=== PATIENT | male | born 1995 | race Caucasian/White ===

== ENCOUNTER 2023-05-31 14:31 | Emergency (ER) | payer OTHER, SELFPAY ==
--- OUTSIDE RECORDS SUMMARY | 2023-05-31 14:55 | XMS REPORT | Continuity of Care Document ---
:1995 Author Organization [facility] t Address [address] [place] [address] Care Team Providers Name Role Phone Pcp, Patient Does Not Have A Primary Care Physician [phone] Vandana Vargas MD Attending Clinician MANUELA CURIEL Attending Clinician Unavailable Manuela Garibay Attending Clinician Service/[place], Surgery C Attending Clinician Unavailable EDNA CHOWDHURY Attending Clinician Unavailable Doctor Unassigned, [place] Attending Clinician Unavailable Ivis Tucker RN Attending Clinician Unavailable VANDANA VARGAS Attending Clinician Unavailable Zeny ECHOLS, Lidia Milligan Attending Clinician Ricardo Dumont MD Attending Clinician VANDANA VARGAS Admitting Clinician Unavailable Vandana Vargas MD Admitting Clinician Payers Payer Name Policy Type Policy Number Effective Date Expiration Date S ource Problems Condition Condition Condition Status Onset Resolution Last Treating Co mments Source Name Details Category Date Date Treatment Clinician Date RLQ RLQ Disease Active 2021-08 Univers abdominal abdominal 2-17 ity of pain pain 00:00: [address] Allergies, Adverse Reactions, Alerts Allergy Allergy Status Severity Reaction(s) Onset Inactive Treating Comm ents Source Name Type Date Date Clinician NO KNOWN Drug Active Univers ALLERGIE Class ity of [facility] Social History Social Habit Start Date Stop Date Quantity Comments Source History SDOH Social Unive rsity of [facility] Branch History SDOH Social Unive rsity of Connections [facility] [place] [facility] History SDOH Social Unive rsity of Connections [place] [facility] Members[facility] History SDOH Social Unive rsity of Connections [place] [facility] Meetings [facility] History of tobacco Passive smoker Un iversity of use [place] [facility] Exposure to 2022-08-05 2022-08-15 Not sure University of SARS-CoV-2 (event) 00:00:00 23:53:00 [place] [facility] History SDOH 2022-07-28 2022-07-28 2 University o f Alcohol Frequency 00:00:00 00:00:00 [place] [facility] History SDOH 2022-07-28 2022-07-28 2 University o f Alcohol Std Drinks 00:00:00 00:00:00 [place] [facility] History SDOH 2022-07-28 2022-07-28 2 University o f Alcohol Binge 00:00:00 00:00:00 [place] [facility] History SDOH Social 2022-07-28 2022-07-28 5 Unive rsity of Connections Phone 00:00:00 00:00:00 [place] [facility] History SDOH Social 2022-07-28 2022-07-28 7 Unive rsity of Connections Living 00:00:00 00:00:00 [place] [facility] History SDOH 2022-07-28 2022-07-28 0 University o f Physical Activity 00:00:00 00:00:00 [place] [facility] DPW Branch History SDOH 2022-07-28 2022-07-28 0 University o f Physical Activity 00:00:00 00:00:00 [place] [facility] MPS Branch History SDOH 2022-07-28 2022-07-28 5 University o f Financial 00:00:00 00:00:00 [place] [facility] History SDOH Food 2022-07-28 2022-07-28 1 Univers ity of Worry 00:00:00 00:00:00 [place] [facility] History SDOH Food 2022-07-28 2022-07-28 1 Univers ity of Scarcity 00:00:00 00:00:00 [place] [facility] History SDOH 2022-07-28 2022-07-28 2 University o f Transport Med 00:00:00 00:00:00 [place] [facility] History SDOH 2022-07-28 2022-07-28 2 University o f Transport Non-Med 00:00:00 00:00:00 [facility] edical [place] Tobacco use and 2022-07-26 2022-07-26 [facility] 00:00:00 tobacco non-user [facility] dical [place] Sex Assigned At [birth year] [facility] y of 00:00:00 00:00:00 [facility] Smoking Status Start Date Stop Date Source Never smoked tobacco [facility] Medications Ordered Filled Start Stop Current Ordering Indication Dosage Frequency Signature Comments Components Source Medication Medication Date Date Medication? Clinician (SIG) Name Name traMADoL 50 2021-08 Yes [id number] 50mg Take 1 Univ ers mg tablet 2-25 tablet by ity o f 00:00: mouth [place] 00 every 8 Medical (eight) Branch hours as needed for Pain (scale 4-6). Indication s: acute pain traMADoL 50 2021-08 Yes 4647 50mg Take 1 Univ ers mg tablet 2-25 tablet by ity o f 00:00: mouth [place] 00 every 8 Medical (eight) Branch hours as needed for Pain (scale 4-6). Indication s: acute pain traMADoL 50 2021-08 Yes 4647 50mg Take 1 Univ ers mg tablet 2-25 tablet by ity o f 00:00: mouth [place] 00 every 8 Medical (eight) Branch hours as needed for Pain (scale 4-6). Indication s: acute pain traMADoL 50 2021-08 Yes 4647 50mg Take 1 Univ ers mg tablet 2-25 tablet by ity o f 00:00: mouth [place] 00 every 8 Medical (eight) Branch hours as needed for Pain (scale 4-6). Indication s: acute pain traMADoL 50 2021-08 Yes 4647 50mg Take 1 Univ ers mg tablet 2-25 tablet by ity o f 00:00: mouth [place] 00 every 8 Medical (eight) Branch hours as needed for Pain (scale 4-6). Indication s: acute pain traMADoL 50 2021-08 Yes 4647 50mg Take 1 Univ ers mg tablet 2-25 tablet by ity o f 00:00: mouth [place] 00 every 8 Medical (eight) Branch hours as needed for Pain (scale 4-6). Indication s: acute pain traMADoL 50 2021-08 Yes 4647 50mg Take 1 Univ ers mg tablet 2-25 tablet by ity o f 00:00: mouth [place] 00 every 8 Medical (eight) Branch hours as needed for Pain (scale 4-6). Indication s: acute pain traMADoL 50 2021-08 Yes 4647 50mg Take 1 Univ ers mg tablet 2-25 tablet by ity o f 00:00: mouth [place] 00 every 8 Medical (eight) Branch hours as needed for Pain (scale 4-6). Indication s: acute pain amoxicillin 2021-08- No [id number] 1{tbl} Take 1 Univers -clavulanat 2-25 01-05 tablet by it y of e 00:00: 05:59 mouth in [place] (AUGMENTIN) 00 :00 the Medical 875-125 mg morning Branch per tablet and 1 tablet in the evening. Do all this for 10 days. amoxicillin 2021-08- No [id number] 1{tbl} Take 1 Univers -clavulanat 2-25 01-05 tablet by it y of e 00:00: 05:59 mouth in [place] (AUGMENTIN) 00 :00 the Medical 875-125 mg morning Branch per tablet and 1 tablet in the evening. Do all this for 10 days. traMADoL 50 2021-08- No [id number] 50mg Take 1 Uni vers mg tablet 2-25 -02 tablet by ity of 00:00: 05:59 mouth [place] 00 :00 every 8 Medical (eight) Branch hours as needed for Pain (scale 4-6) for up to 7 days. Indication s: acute pain acetaminoph 2021-08- No [id number] 650mg Take 2 Univers en 325 mg 2-25 12-31 tablets by ity of tablet 00:00: 05:59 mouth [place] 00 :00 every 6 Medical (six) Branch hours for 5 days. ibuprofen 2021-08- No [id number] 600mg Take 1 Univers 600 mg 2-25 12-31 tablet by ity of tablet 00:00: 05:59 mouth [place] 00 :00 every 6 Medical (six) Branch hours for 5 days. simethicone 2021-08- No [id number] 80mg Take 1 Univers 80 mg 2-25 12-31 tablet by ity of chewable 00:00: 05:59 mouth [place] tablet 00 :00 after Medical meals and Branch at bedtime for 5 days. simethicone 2021-08- No [id number] 80mg Take 1 Univers 80 mg 2-25 12-30 tablet by ity of chewable 00:00: 05:59 mouth [place] tablet 00 :00 after Medical meals and Branch at bedtime for 4 days. ibuprofen 2021-08- No [id number] 600mg Take 1 Univers 600 mg 2-25 12-30 tablet by ity of tablet 00:00: 05:59 mouth [place] 00 :00 every 6 Medical (six) Branch hours for 4 days. acetaminoph 2021-08- No [id number] 650mg Take 2 Univers en 325 mg 2-25 12-30 tablets by ity of tablet 00:00: 05:59 mouth [place] 00 :00 every 6 Medical (six) Branch hours for 4 days. metoclopram 2021-08 No 5mg 5 mg, Slow Univers charlie HCl 10-03 12-25 IV Push, ity of (REGLAN) 18:00: 17:58 Q6H, First [place] injection 5 00 :01 dose on Medic al mg Sat Branch 08/02/22 at 1200, Until Discontinu ed, Routine potassium 2021-08 No 20meq 20 mEq, IV Univers chloride in 10-03 12-24 Piggyback, i ty of water (KCL) 12:30: 17:10 Q2H ES, 2 [place] 20 mEq/100 00 :00 doses, Medical mL RTU IVPB First dose Br anch 20 mEq on 08/02/22 at 0630, Last dose on 08/02/22 at 0830, 100 mL piperacilli 2021-08 No 3.375g 3.375 g, Univers n-tazobacta 10-02 IV ity of m (ZOSYN) 22:45: 22:44 Piggyback, [place] 3.375 g in 00 :00 Q8H ABX, Medic al NaCl 0.9% 30 doses, Branc h (NS) 50 mL First dose MINI-BAG on Thu08/01/22 at 1645, Last dose on Thu08/11/22 at 0845, Administer over 4 Hours, 50 mL
Reas on for Anti-Infec tive: Documented Infection< br>Documen estela Infection Site: Abdominal< br>Duratio n of Therapy: 14 days lidocaine 2021-08- No 15mL 15 mL, Unive rs 1% (PF) 10-02 Infiltrati ity o f (XYLOCAINE) 18:15: 17:47 on, ONCE, [place] injection 00 :00 1 dose, On Medi sumi 15 mL Fri Branch 08/01/22 at 1215, Routine ibuprofen 2021-08 Yes 600mg 600 mg, Univ ers (IBU) 10-02 Oral, Q6H, ity of tablet 600 18:00: First dose [place] mg 00 on Fri Medical 08/01/22 Branch at 1200, Until Discontinu ed, Routine iopamidol 2021-08- No [id number] 30mL 30 mL, Univers (ISOVUE 10-02 Oral, ity of 370-200 mL) 17:45: 15:15 ONCE, 1 [place] injection 00 :00 dose, On Medica l 30 mL Fri Branch 08/01/22 at 1145, Routine iopamidol 2021-08- No [id number] 50mL 50 mL, Univers (ISOVUE 10-02 Intravenou ity o f 370-500 mL) 17:45: 16:50 s, ONCE, 1 [place] injection 00 :00 dose, On Medica l 50 mL Fri Branch 08/01/22 at 1145, Routine acetaminoph 2021-08 Yes 650mg 650 mg, Un tad en 10-02 Oral, Q6H, ity of (TYLENOL) 15:00: First dose [place] tablet 650 00 on Fri Medical mg 08/01/22 Branch at 0900, Until Discontinu ed, Routine piperacilli 2021-08- No 3.375g 3.375 g, Univers n-tazobacta 10-02 IV ity of m (ZOSYN) 15:00: 15:33 Piggyback, [place] 3.375 g in 00 :00 ONCE, 1 Medica l NaCl 0.9% dose, On Branch (NS) 50 mL Fri MINI-BAG 08/01/22 at 0900, Administer over 30 Minutes, 50 mL
Reas on for Anti-Infec tive: Empiric Therapy for Suspected Infection< br>Empiric Therapy Site: Abdominal< br>Duratio n of therapy: 5 days ibuprofen 2021-08 No 600mg 600 mg, Uni vers (IBU) 10-02 Oral, ity of tablet 600 12:00: 12:45 ONCE, 1 [place] mg 00 :00 dose, On Medical Fri Branch 08/01/22 at 0600, Routine acetaminoph 2021-08 No 650mg 650 mg, U nivers en 10-02 Oral, ity of (TYLENOL) 09:00: 09:01 ONCE, 1 [place] tablet 650 00 :00 dose, On Medic al mg Fri Branch 08/01/22 at 0300, Routine clindamycin 2021-08 No 600mg 600 mg, IV Univers in 5 % 10-02 Piggyback, ity of dextrose 05:15: 14:12 Q8H ABX, 3 [place] (CLEOCIN) 00 :24 doses, Medical 600 mg/50 First dose Bran ch mL IV on [place] piggyback 07/31/22 RTU 600 mg at 2315, Last dose on Thu08/01/22 at 1515, Administer over 30 Minutes, 50 mL
Reas on for Anti-Infec tive: Empiric Therapy for Suspected Infection< br>Empiric Therapy Site: Skin / Soft tissue
Duration of therapy: 72 hours
R estricted use approved by: After Hours (for ADC, CLC, LCC ONLY) acetaminoph 2021-08 No 1000mg 1,000 mg, Univers en 09-29 Oral, Q8H, ity of (TYLENOL) 20:00: 04:05 First dose [place] tablet 00 :31 on Thu Medical 1,000 mg 07/29/22 Branch at 1400, Until Discontinu ed, Routine D5W 0.45% 2021-08 No 1000mL at 50 Univ ers NaCl 09-29 12-25 mL/hr, ity of (1/2NS) IV 15:15: 17:58 1,000 mL, [place] infusion 00 :07 IV Medical 1,000 mL Infusion, Branch CONTINUOUS , Starting on Thu07/29/22 at 0915, Until 08/03/22 at 1158, Routine bisacodyL 2021-08 No 10mg 10 mg, Unive rs (DULCOLAX) 2- 12-19 Rectal, ity o f suppository 20:45: 20:45 ONCE, 1 [place] 10 mg 00 :00 dose, On Medical [facility] Branch 07/28/22 at 1445, Routine D5W 0.45% 2021-08 Yes 1000mL at 100 Univ ers NaCl 2-19 mL/hr, ity of (1/2NS) IV 13:00: 1,000 mL, [place] infusion 00 IV Medical 1,000 mL Infusion, Branch CONTINUOUS , Starting on Thu07/28/22 at 0700, Until Discontinu ed, Routine D5W 0.45% 2021-08 No 1000mL at 100 Uni vers NaCl - 12-20 mL/hr, ity of (1/2NS) IV 13:00: 15:08 1,000 mL, [place] infusion 00 :39 IV Medical 1,000 mL Infusion, Branch CONTINUOUS , Starting on Thu07/28/22 at 0700, Until Thu07/29/22 at 0908, Routine methocarbam 2021-08 Yes 1000mg 1,000 mg, Univers oL - Intravenou ity of (ROBAXIN) 12:00: s, Q8H, [place] injection 00 First dose Medi sumi 1,[address] [facility] 07/28/22 at 0600, Until Discontinu ed, Routine methocarbam 2021-08 No 1000mg 1,000 mg, Univers oL -28 07- Intravenou ity of (ROBAXIN) 12:00: 16:43 s, Q8H, [place] injection 00 :23 First dose Medi sumi 1,[address] [facility] 07/28/22 at 0600, Until Discontinu ed, Routine simethicone 2021-08 Yes 80mg 80 mg, Univ ers (GAS RELIEF 2-19 Oral, ity of (SIMETHICON 11:30: PC+HS, [place] E)) 00 First dose Medical chewable on Thu Branch tablet 80 07/28/22 mg at 0530, Until Discontinu ed, Routine simethicone 2021-08 Yes 80mg 80 mg, Univ ers (GAS RELIEF 2-19 Oral, ity of (SIMETHICON 11:30: PC+HS, [place] E)) 00 First dose Medical chewable on Thu Branch tablet 80 07/28/22 mg at 0530, Until Discontinu ed, Routine acetaminoph 2021-08- No 1000mg 1,000 mg, Univers en ADULT 09-28 IV ity of ([facility]) 11:00: 10:59 Infusion, [place] injection 00 :00 at 400 Medical 1,000 mg mL/hr Branch Administer over 15 Minutes, Q8H ABX, 3 doses, First dose on Thu07/28/22 at 0500, Last dose on Thu07/28/22 at 2100, Routine
Indicatio n: Perioperat angelina Patient acetaminoph 2021-08- No 1000mg 1,000 mg, Univers en ADULT 09-28 IV ity of ([facility]) 11:00: 02:23 Infusion, [place] injection 00 :00 at 400 Medical 1,000 mg mL/hr Branch Administer over 15 Minutes, Q8H ABX, 3 doses, First dose on Thu07/28/22 at 0500, Last dose on Thu07/28/22 at 2100, Routine
Indicatio n: Perioperat angelina Patient ondansetron 2021-08 Yes 4mg 4 mg, Slow Univers (ZOFRAN 2-19 IV Push, ity of (PF)) 10:12: Q6HPRN, [place] injection 4 14 Nausea and Me dical mg Vomiting Branch (N/V), Starting on Thu07/28/22 at 0412
Do ses of ondansetro n 16 mg and above need to be administer ed via IV piggyback. For Dose >=24mg ECG monitoring is advisable.
ondansetron 2021-08 Yes 4mg 4 mg, Slow Univers (ZOFRAN 2-19 IV Push, ity of (PF)) 10:12: Q6HPRN, [place] injection 4 14 Nausea and Me dical mg Vomiting Branch (N/V), Starting on Thu07/28/22 at 0412
Do ses of ondansetro n 16 mg and above need to be administer ed via IV piggyback. For Dose >=24mg ECG monitoring is advisable.
benzocaine 2021-08 Yes 1{spray 1 [place], Univers (HURRICAINE 2-19 } Oral, ity of ONE) 20 % 04:02: Q4HPRN, [place] mucosal 49 Starting Medical spray 1 on [place] [facility] [place] 07/27/22 at 2202, Until Discontinu ed, Routine, Sore throat benzocaine 2021-08 Yes 1{spray 1 [place], Univers (HURRICAINE 2-19 } Oral, ity of ONE) 20 % 04:02: Q4HPRN, [place] mucosal 49 Starting Medical spray 1 on [place] Branch [place] 07/27/22 at 2202, Until Discontinu ed, Routine, Sore throat ibuprofen 2021-08 Yes 600mg 600 mg, Univ ers (IBU) 2-18 Oral, Q8H, ity of tablet 600 20:00: First dose [place] mg 00 on [place] [facility] 07/27/22 Branch at 1400, Until Discontinu ed, Routine ibuprofen 2021-08 No 600mg 600 mg, Uni vers (IBU) 2-18 12-23 Oral, Q8H, ity of tablet 600 20:00: 04:05 First dose [place] mg 00 :31 on [place] [facility] 07/27/22 Branch at 1400, Until Discontinu ed, Routine acetaminoph 2021-08 No 1000mg 1,000 mg, Univers en 2-18 12-19 Oral, Q8H, ity of (TYLENOL) 20:00: 10:48 First dose [place] tablet 00 :16 on [place] [facility] 1,000 mg 07/27/22 Branch at 1400, Until Discontinu ed, Routine pantoprazol 2021-08 Yes 40mg 40 mg, Univ ers e 2-18 Oral, ity of (PROTONIX) 18:45: DAILY, [place] EC tablet 00 First dose Medi sumi 40 mg on [place] [facility] 07/27/22 at 1245, Until Discontinu ed, Routine pantoprazol 2021-08 Yes 40mg 40 mg, Univ ers e 2-18 Oral, ity of (PROTONIX) 18:45: DAILY, [place] EC tablet 00 First dose Medi sumi 40 mg on [place] [facility] 07/27/22 at 1245, Until Discontinu ed, Routine D5W 0.45% 2021-08 No 1000mL at 75 Univ ers NaCl 2-18 12-19 mL/hr, ity of (1/2NS) IV 18:00: 12:56 1,000 mL, [place] infusion 00 :51 IV Medical 1,000 mL Infusion, Branch CONTINUOUS , Starting on 07/27/22 at 1200, Until 07/28/22 at 0656, Routine methocarbam 2021-08 No 1000mg 1,000 mg, Univers oL 09-27 Oral, QID, ity of (ROBAXIN) 18:00: 11:21 First dose [place] tablet 00 :01 on [place] [facility] 1,000 mg 07/27/22 Branch at 1200, Until Discontinu ed, Routine enoxaparin 2021-08 Yes 40mg 40 mg, Unive rs (LOVENOX) 09-27 Subcutaneo ity of injection 15:00: us, DAILY, [place] 40 mg 00 First dose Medical on [place] [facility] 07/27/22 at 0900, Until Discontinu ed, Routine enoxaparin 2021-08 Yes 40mg 40 mg, Unive rs (LOVENOX) 09-27 Subcutaneo ity of injection 15:00: us, DAILY, [place] 40 mg 00 First dose Medical on [facility] 07/27/22 at 0900, Until Discontinu ed, Routine ondansetron 2021-08 No 4mg 4 mg, Slow Univers (ZOFRAN 09-27 IV Push, ity of (PF)) 05:00: 04:27 ONCE, On [place] injection 4 00 :00 Sat Medical mg 07/26/22 Branch at 2300, For 1 dose
Do ses of ondansetro n 16 mg and above need to be administer ed via IV piggyback. For Dose >=24mg ECG monitoring is advisable.
ketorolac 2021-08 No 15mg 15 mg, Unive rs (TORADOL) 09-27 Slow IV ity of injection 04:00: 17:47 Push, Q8H, [place] 15 mg 00 :33 3 doses, Medical First dose Branch on 07/26/22 at 2200, Last dose on 07/27/22 at 1400, Routine morpHINE (2 2021-08 Yes 2mg 2 mg, Slow Univers mg/mL) 09-27 IV Push, ity of injection 2 03:00: Q4HPRN, [place] mg 00 Starting Medical on [facility] Branch 07/26/22 at 2100, Until Discontinu ed, Routine, Pain (scale 7-10) morpHINE (2 2021-08 Yes 2mg 2 mg, Slow Univers mg/mL) 09-27 IV Push, ity of injection 2 03:00: Q4HPRN, [place] mg 00 Starting Medical on [facility] Branch 07/26/22 at 2100, Until Discontinu ed, Routine, Pain (scale 7-10) morpHINE (2 2021-08- No 2mg 2 mg, Slow Univers mg/mL) 09-27 IV Push, ity of injection 2 00:00: 23:51 ONCE, 1 [place] mg 00 :00 dose, On Medical [facility] Branch 07/26/22 at 1800, Routine piperacilli 2021-08 No 3.375g 3.375 g, Univers n-tazobacta 09-26 IV ity of m (ZOSYN) 23:45: 19:04 Piggyback, [place] 3.375 g in 00 :00 Q8H ABX, 3 Med ical NaCl 0.9% doses, Branch (NS) 50 mL First dose MINI-BAG (after last modificati on) on [facility] 07/26/22 at 1745, Last dose on [place] 07/27/22 at 0945, Administer over 4 Hours, 50 mL
Reas on for Anti-Infec tive: Empiric Therapy for Suspected Infection< br>Empiric Therapy Site: Abdominal< br>Duratio n of therapy: 5 days methocarbam 2021-08 No 1000mg 1,000 mg, Univers oL 09-26 Intravenou ity of (ROBAXIN) 23:45: 17:47 s, Q8H, [place] injection 00 :33 First dose Medi sumi 1,000 mg (after Branch last modificati on) on [facility] 07/26/22 at 1745, Until Discontinu ed, Routine D5W 0.45% 2021-08 No 1000mL at 125 Uni vers NaCl 09-26 mL/hr, ity of (1/2NS) IV 21:30: 17:47 1,000 mL, [place] infusion 00 :33 IV Medical 1,000 mL Infusion, Branch CONTINUOUS , Starting on [facility] 07/26/22 at 1530, Until 07/27/22 at 1147, Routine HYDROcodone 2021-08- No 1{tbl} 1 tablet, Univers -acetaminop 09-26 Oral, ity of hen (NORCO 21:30: 21:47 ONCE, 1 [place] 5) 5-325 mg 00 :00 dose, On [facility] tablet 1 [facility] Branch tablet 07/26/22 at 1530, Routine, PACU bupivacaine 2021-08- No PRN, Unive rs -epinephrin 09-26 Starting ity of e-pf 21:06: 21:30 on [facility] (SENSORCAIN 00 :45 07/26/22 Medi sumi E at 1506, Branch W/EPINEPHRI Until Sat NE) 0.25 07/26/22 %-1:200,000 at 1530, injection Routine, Intra-op piperacilli 2021-08 No 3.375g 3.375 g, Univers n-tazobacta 09-26 IV ity of m (ZOSYN) 15:45: 21:21 Piggyback, [place] 3.375 g in 00 :11 Q8H ABX, Medic al NaCl 0.9% 21 doses, Branc h (NS) 50 mL First dose MINI-BAG on [facility] 07/26/22 at 0945, Last dose on 08/02/22 at 0145, Administer over 4 Hours, 50 mL
Reas on for Anti-Infec tive: Empiric Therapy for Suspected Infection< br>Empiric Therapy Site: Abdominal< br>Duratio n of therapy: 5 days polyethylen 2021-08 Yes 17g 17 g, Unive rs e glycol 2-17 Oral, QAM, ity o f 3350 powder 15:00: First dose [place] 17 g 00 on [facility] Medical 07/26/22 Branch at 0900, Until Discontinu ed, Routine polyethylen 2021-08- No 17g 17 g, Univ ers e glycol 2-07-31 Oral, QAM, ity of 3350 powder 15:00: 16:43 First dose [place] 17 g 00 :23 on [facility] Medical 07/26/22 Branch at 0900, Until Discontinu ed, Routine pantoprazol 2021-08 No 40mg 40 mg, Uni vers e 09-26 Oral, ity of (PROTONIX) 15:00: 17:47 DAILY, [place] EC tablet 00 :33 First dose Medi sumi 40 mg on Sat Branch 07/26/22 at 0900, Until Discontinu ed, Routine acetaminoph 2021-08 No 1000mg 1,000 mg, Univers en ADULT 09-26 IV ity of (OFIRMEV) 12:00: 11:59 Infusion, [place] injection 00 :00 at 400 Medical 1,000 mg mL/hr Branch Administer over 15 Minutes, Q8H, 3 doses, First dose on [facility] 07/26/22 at 0600, Last dose on [facility] 07/26/22 at 2200, Routine
Indicatio n: Perioperat angelina Patient ibuprofen 2021-08 No 400mg 400 mg, Uni vers (IBU) 09-26 Oral, Q8H, ity of tablet 400 12:00: 21:21 First dose [place] mg 00 :11 on [facility] Medical 07/26/22 Branch at 0600, Until Discontinu ed, Routine piperacilli 2021-08 No 3.375g 3.375 g, Univers n-tazobacta 09-26 IV ity of m (ZOSYN) 07:45: 07:42 Piggyback, [place] 3.375 g in 00 :00 ONCE, 1 Medica l NaCl 0.9% dose, On Branch (NS) 50 mL Sat MINI-BAG 07/26/22 at 0145, Administer over 30 Minutes, 50 mL
Reas on for Anti-Infec tive: Documented Infection< br>Documen estela Infection Site: Abdominal< br>Duratio n of Therapy: Other (see Comments) D5W 0.45% 2021-08 No 1000mL at 100 Uni vers NaCl 09-26 mL/hr, ity of (1/2NS) IV 07:15: 21:21 1,000 mL, [place] infusion 00 :11 IV Medical 1,000 mL Infusion, Branch CONTINUOUS , Starting on 07/26/22 at 0115, Until 07/26/22 at 1521, Routine morpHINE (2 2021-08- No 2mg 2 mg, Slow Univers mg/mL) 09-26 IV Push, ity of injection 2 07:02: 02:53 Q6HPRN, [place] mg 27 :00 Starting Medical on [facility] Branch 07/26/22 at 0102, Until [facility] 07/26/22 at 2053, Routine, Pain (scale 7-10) traMADoL 2021-08 Yes 50mg 50 mg, Univers (ULTRAM) 2-17 Oral, ity of tablet 50 07:02: Q8HPRN, [place] mg 20 Starting Medical on [facility] Branch 07/26/22 at 0102, Until Discontinu ed, Routine, Pain (scale 4-6) traMADoL 2021-08 Yes 50mg 50 mg, Univers (ULTRAM) 2- Oral, ity of tablet 50 07:02: Q8HPRN, [place] mg 20 Starting Medical on [facility] 07/26/22 at 0102, Until Discontinu ed, Routine, Pain (scale 4-6) iopamidol 2021-08- No [id number] 56mL 56 mL, Univers (ISOVUE 09-26 Intravenou ity o f 370-500 mL) 04:45: 04:45 s, ONCE, 1 [place] injection 00 :00 dose, On Medica l 56 mL Fri Branch 07/25/22 at 2245, Routine ketorolac 2021-08- No 30mg 30 mg, Unive rs (TORADOL) 09-26 Slow IV ity of injection 04:15: 03:11 Push, [place] 30 mg 00 :00 ONCE, 1 Medical dose, On Branch 07/25/22 at 2215, Routine Vital Signs Vital Name Observation Time Observation Value Comments Source Systolic blood 2022-08-16 06:45:00 116 mm[Hg] Univer sity of pressure [facility] Diastolic blood 2022-08-16 06:45:00 68 mm[Hg] Unive rsity of pressure [facility] Heart rate 2022-08-16 06:45:00 75 /min Universi ty [facility] Respiratory rate 2022-08-16 06:45:00 16 /min Univ ersity [facility] Medical Branch Oxygen saturation in 2022-08-16 06:45:00 97 /min University of Arterial blood by [facility] sumi Pulse oximetry Branch Body temperature 2022-08-16 05:55:00 36.78 Flor Univ ersity [facility] [place] [facility] Body height 2022-08-16 05:54:00 172.7 cm [facility] [place] [facility] Body weight 2022-08-16 05:54:00 81.647 kg [facility] [place] [facility] BMI 2022-08-16 05:54:00 27.37 kg/m2 [facility] [place] [facility] Systolic blood 2022-08-14 21:18:00 120 mm[Hg] Univer sity of pressure [place] [facility] Diastolic blood 2022-08-14 21:18:00 71 mm[Hg] Unive rsity of pressure [place] [facility] Heart rate 2022-08-14 21:18:00 94 /min [facility] [place] [facility] Body temperature 2022-08-14 21:18:00 36.72 Flor Univ [facility] [place] [facility] Body height 2022-08-14 21:18:00 172.7 cm [facility] [place] [facility] Body weight 2022-08-14 21:18:00 82.464 kg [facility] [place] [facility] BMI 2022-08-14 21:18:00 27.64 kg/m2 [facility] [place] [facility] Oxygen saturation in 2022-08-14 21:18:00 94 /min University of Arterial blood by [facility] Pulse oximetry Branch Systolic blood 2022-08-03 17:30:00 116 mm[Hg] Univer sity of pressure [place] [facility] Diastolic blood 2022-08-03 17:30:00 66 mm[Hg] Unive rsity of pressure [place] [facility] Heart rate 2022-08-03 17:30:00 74 /min [facility] [place] [facility] Body temperature 2022-08-03 17:30:00 37 Flor [facility] [place] [facility] Respiratory rate 2022-08-03 17:30:00 20 /min [facility] [place] [facility] Oxygen saturation in 2022-08-03 17:30:00 99 /min University of Arterial blood by [facility] sumi Pulse oximetry Branch Body height 2022-07-28 14:01:00 172.7 cm Universi [facility] Medical [place] Body weight 2022-07-28 14:01:00 88 [facility] [place] BMI 2022-07-28 14:01:00 29.51 [facility] 2022-07-26 18:15:00 125 mm[Hg] Univer sity of pressure [facility] Diastolic blood 2022-07-26 18:15:00 70 mm[Hg] Unive rsity of [facility] Heart rate 2022-07-26 18:15:00 76 /min [facility] Respiratory rate 2022-07-26 18:15:00 15 /min [facility] Oxygen saturation in 2022-07-26 18:15:00 98 /min [facility] Arterial blood by [facility] Pulse oximetry Branch Body temperature 2022-07-26 17:45:00 37.17 Flor [facility] Body height 2022-07-26 08:30:00 172.7 cm [facility] Body weight 2022-07-26 08:30:00 88 kg [facility] BMI 2022-07-26 08:30:00 29.51 kg/m2 [facility] Procedures Procedure Date / Time Performing Clinician Source Performed CONSENT/REFUSAL FOR 2022-08-16 05:29:36 Doctor Unassigned, No [facility] CONSENT/REFUSAL FOR 2022-08-14 21:08:40 [facility], [facility] Branch BASIC METABOLIC PANEL 2022-08-03 12:11:00 Carmella Sotelo [facility] (NA, K, CL, CO2, Julia, Mukesh Medical Bran GLUCOSE, BUN, CREATININE, CA) CBC WITH DIFF 2022-08-03 12:11:00 Carmella Sotelo [facility] Julia, Mukesh Medical [facility] h XR KUB 2022-08-02 12:41:00 Carmella Sotelo [facility] Julia, Mukesh Medical [facility] h BASIC METABOLIC PANEL 2022-08-02 09:09:00 Carmella S[facility]elo [facility] (NA, K, CL, CO2, Julia, Mukesh Medical Bran ch GLUCOSE, BUN, CREATININE, CA) CBC WITH DIFF 2022-08-02 09:09:00 Carmella Sotelo [facility] Julia, Mukesh Medical Branc h XR KUB 2022-08-01 20:37[facility], Mkuesh Medical Branc h WOUND/ASPIRATE OR 2022-08-01 18:02:00 Carmella Sotelo [facility] ABSCESS CULTURE Julia, Mukesh Medical Branc h WOUND CULTURE 2022-08-01 18:02:00 [facility], Mukesh Medical Branc h CT ABDOMEN PELVIS W 2022-08-01 17:00:06 Carmella Sotelo [facility] CONTRAST Julia, Mukesh Medical Branc h BASIC METABOLIC PANEL 2022-08-01 10:38:00 Barbra Villar [facility] (NA, K, CL, CO2, Medical Branch GLUCOSE, BUN, CREATININE, CA) CBC WITH DIFF 2022-08-01 10:38:00 [facility] Julia, Mukesh Medical Branc h XR KUB 2022-07-31 15:20:35 [facility] Julia, Mukesh Medical Branc h BASIC METABOLIC PANEL 2022-07-31 11:27:00 Barbra Villar [facility] (NA, K, CL, CO2, Medical Branch GLUCOSE, BUN, CREATININE, CA) CBC WITH DIFF 2022-07-31 11:27:00 Barbra Villar [facility] BASIC METABOLIC PANEL 2022-07-30 12:24:00 Barbra Villar [facility] (NA, K, CL, CO2, Medical Branch GLUCOSE, BUN, CREATININE, CA) CBC WITH DIFF 2022-07-30 12:24:00 Barbra Villar [facility] Medical Branch PHOSPHORUS 2022-07-29 09:47:00 Sohail Vera, [facility] Branch MAGNESIUM 2022-07-29 09:47:00 Sohail Vera, [facility] BASIC METABOLIC PANEL 2022-07-29 09:47:00 Barbra Villar [facility] (NA, K, CL, CO2, Medical Branch GLUCOSE, BUN, CREATININE, CA) CBC WITH DIFF 2022-07-29 09:47:00 [facility] 2022-07-28 10:50:14 [facility] 2022-07-28 10:50:14 Juan Francisco [facility] BASIC METABOLIC PANEL 2022-07-28 09:11:00 Barbra Villar [facility] (NA, K, CL, CO2, Medical Branch GLUCOSE, BUN, CREATININE, CA) CBC WITH DIFF 2022-07-28 09:11:00 Jian [facility] BASIC METABOLIC PANEL 2022-07-28 09:11:00 Barbra Villar [facility] (NA, K, CL, CO2, Medical Branch GLUCOSE, BUN, CREATININE, CA) CBC WITH DIFF 2022-07-28 09:11:00 Jian [facility] BASIC METABOLIC PANEL 2022-07-27 12:19:00 Barbra Villar [facility] (NA, K, CL, CO2, Medical Branch GLUCOSE, BUN, CREATININE, CA) CBC WITH DIFF 2022-07-27 12:19:00 Jian [facility] BASIC METABOLIC PANEL 2022-07-27 12:19:00 Barbra Villar [facility] (NA, K, CL, CO2, Medical Branch GLUCOSE, BUN, CREATININE, CA) CBC WITH DIFF 2022-07-27 12:19:00 [facility]AM 2022-07-26 20:22:00 Vandana Vargas [facility] DIAGNOSTIC LAPAROSCOPY 2022-07-26 18:04:00 Vandana Vargas [facility] ILEOCECECTOMY 2022-07-26 18:04:00 Vandana Vargas [facility] DIAGNOSTIC LAPAROSCOPY 2022-07-26 18:04:00 Vandana Vargas [facility] ILEOCECECTOMY 2022-07-26 18:04:00 Vandana Vargas [facility] BASIC METABOLIC PANEL 2022-07-26 11:42:00 Barbra Villar [facility] (NA, K, CL, CO2, Medical Branch GLUCOSE, BUN, CREATININE, CA) CBC WITH DIFF 2022-07-26 11:42:00 Jian [facility] BASIC METABOLIC PANEL 2022-07-26 11:42:00 Jian [facility] (NA, K, CL, CO2, Medical Branch GLUCOSE, BUN, CREATININE, CA) CBC WITH DIFF 2022-07-26 11:42:00 Jian [facility] CT ABDOMEN PELVIS W 2022-07-26 03:53:00 Lidia Moura [facility] CONTRAST [facility] CT ABDOMEN PELVIS W 2022-07-26 03:53:00 Lidia Moura [facility] CONTRAST [facility] URINALYSIS 2022-07-26 02:44:00 Lidia Moura [facility] URINALYSIS 2022-07-26 02:44:00 Lidia Moura [facility] COMP. METABOLIC PANEL 2022-07-26 02:34:00 Lidia Moura [facility] ([id number]) Medical Branch CBC WITH DIFF 2022-07-26 02:34:00 Lidia Moura [facility] COMP. METABOLIC PANEL 2022-07-26 02:34:00 Lidia Moura [facility] ([id number]) Medical Branch CBC WITH DIFF 2022-07-26 02:34:00 Lidia Moura [facility] CONSENT/REFUSAL FOR 2022-07-26 01:48:22 Doctor Unassigned, No [facility] [place] [facility] Name Medical Branch CONSENT/REFUSAL FOR 2022-07-26 01:48:22 Doctor Unassigned, No Un [facility] [place] [facility]REATMENT Name Medical Branch Encounters Start End Encounter Admission Attending Care Care Encounter Source Date/Time Date/Time Type Type Clinicians Facility Department ID 2022-09-06 2022-09-06 [facility] [id number] Univers 00:00:00 00:00:00 Vandana SPECIALTY 350.1.13.10 ity of Joe CARE 4.2.7.2.686 [facility] AT [phone] Fl aurora GOLDBERG 188 [facility] 2022-08-15 2022-08-16 Emergency X MOISÉS, RUST ERT [id number] Univers 23:56:00 01:00:00 MANUELA hansony of [facility] 2022-08-15 2022-08-16 Emergency Moisés, RUST [id number] Univers 23:56:00 01:00:00 Manuela [facility] 350.1.13.10 it y of [place] 4.2.7.2.686 [facility] [phone] [address] ([facility]) 2022-08-15 2022-08-15 Telephone Sam RUST [id number] Univers 00:00:00 00:00:00 Vandana SPECIALTY 350.1.13.10 ity of Joe CARE 4.2.7.2.686 [facility] AT [phone] Fl aurora GOLDBERG 203 [facility] 2022-08-15 2022-08-15 Telephone Service/Gen RUST [id number] Univers 00:00:00 00:00:00 surg, SPECIALTY 350.1.13.10 ity of Surgery C CARE 4.2.7.2.686 [place] CENTER AT [phone] Fl aurora GOLDBERG 203 [facility] 2022-08-14 2022-08-14 Outpatient R [facility] [id number] Univers 15:15:00 16:44:00 EDNA colbert [facility] 2022-08-14 2022-08-14 Office Service/[place], Surgery C RUST [id number] Univers 15:15:00 15:30:00 Visit Edna Chowdhury SPECIALTY 350.1.13.1 0 it[place] [phone] Fl dical VICTORY 203 Branch [facility] 2022-08-14 2022-08-14 Orders Doctor VANDANA [id number] Univers 00:00:00 00:00:00 Only Unassigned, IRAIS 350.1.13.10 ity of [place] [facility] 4.2.7.2.686 James as [id number] [facility] 009 Branch 2022-08-05 2022-08-05 Transition WILMAN Tucker [id number] Univers 00:00:00 00:00:00 of Care Ivis ELAMY 350.1.13.10 it [place] [id number] [facility] 403 Branch 2022-07-25 2022-08-03 Inpatient X BRONWYN VARGAS ALVAREZ [id number] Univers 20:01:00 14:00:00 VANDANA ignacio of [facility] 2022-07-25 2022-08-03 [facility] Lidia Moura RUST 1.2.840. [id number] Univers 20:01:00 14:00:00 Encounter Ricardo Dumont [facility] 350.1.13.10 ity of Vandana Vargas 4.2.7.2.686 [place] [id number] [address] ([facility]) 2022-07-26 2022-07-26 Surgery Sam FLMAYCO [id number] Univers 12:06:00 14:12:00 Vandana JASSO 350.1.13.10 ity of Joe [place] 4.2.7.2.686 [facility] AT [id number] Fl dicjuan luis GOLDBERG 020 [facility] Results Test Description Test Time Test Comments Results Result Comments Source SURGICAL PATHOLOGY EXAM 2022-07-30 19:29:05 Test Item Value Reference Range Interpretation Comme nts Case Report (test code = 6918574425) Surgical Pathology ?Case: [id number] ? Authorizing Provider: ?Vandana Vargas MD ? Collected: ? 07/26/2022 1422 ?Ordering Location: ? ? [facility] ? ? Received: ?07/26/2022 1656 ? Center ? Pathologist: ? He, Marita, ? Specimen: ? ?LARGE INTESTINE, CECUM, ileocecectomy ? Final Diagnosis (test code = h5khyPCjMZLzc5quQVVxzVKgEzZnWmJhPcCzOd [id number]) uSGiVEfxqyCkIDfdoLshEDTvIVPxYR9diGusaLk1 vYmvIDWuceY5fEPbSAgpl8nvKSF2e8lalnkhOPDw VUefEr3lkLIsgMxaKyQvOWDsMZt9aV84FBHsaS2t mVDjBFw5KJAupDPsawNzLuCtBDCdpTAktRX8WLIr DZ7xlpqaVVkaMGwpOXCmzhY0XZHbaLYbU6ZvHWHd RT0kpvvxZYI2MOpsNMEsBUL6FsKmBBEjr9Esthw1 UiVajUXoUYonrLDyjlzzzsTuPAIpknFNTsJRR2cI PtkkWFcJT8HCD3HEUO1VJLzjxCClZPFtFGAfUZXJ FQ1IH09qN83EY81WCxZJKyGzFRiQMBfgGYrYC9RK LBqEHRxyB22FN1FLBLJIGOUSVOSDYQUeAgUGP5TI ZNZWU3XKTPZgzDNwVJExXOIsEGPaM8ZRT2AIQJhI DXHqevLkNQAwSU0eLmFCRFQFBB7NZL6EEmlDRdDq DarNBprFRYRppindPOB1n2saoQOqHXJffOQdAoEi OVTuMXNan5ogEREjyHAqVsMfTpLxVjQcJxuxzAUb KHDoXbFsw2fkh336qOLyj1fjMUXoTaV5nCMrDPIe ySewxnx6fJddTiEqXJVdm1xclcBpShNfTGYpEOJn SWFwkXHxD619KEOpGDycg3jgj0YjWWLmcIWfh5E6 JOTGVBzhEbOsE383r0lrz5mxlcNyfTF3WEEiOYM5 GWpxffLmhiM2RGskaNGeFaL2MUyouxJzNLcqwdRt apRzIzk3FHAsZ261YQJ6nOexb5nrAWR9DWCpLWIq RzloFb1rlEXrW474RVNkCCGIDCFeuNh9QSAupkNy qtYjbCBUs533M276u5ccSHEfokJsiYwCkaurw4mt P530GXQsnTTeuqEjUbLqIWGhoKXlvCD8VVBjSG6a oduyYGplYMvwHZWlyrD3XJWjuGQeD4YbZNBmDL2b fcivEYZ6QYkdIWFqTMN5QyViKYDly2Cpquy9UdZf fc8kzf32TPO9o1OmtXdcSHP3NGO0HfWtTi1hiMKy CHCdSG7vArUksJZnGQFszt59rJovKXbkfoJvrB1u WiAvKVHskVYfWXDmJY6fjIHhTOCidW7zkrtePCEs YaXrxjljRYXtdNazptEkMa7pdBnhKYG2IDomR8ko fY3oFsS2KTnyE1jafX7vZBb0DKxlfYY4IBDazC5n RU8fwiovv2mrDDdsSYztVJWxjwD5spW5DNAuwFRd A5FltP6kROZhOL4nnegar2svSHU5RWhjWVUpHLS6 NzZbULLwg7Adjfq6XwJak0AshNYdSRurH62ie617 IRRfzhKrS8qdyKHylisrdDVjhxgrCNbosaI6EBGy XHBsYWluXGYxXGZzMjBcbGFuZzEwMzNcaGljaFxm VAlrNiCsRBFdUSjaK3xkWcSqA3ZoYZTnJvDgyQSd MCnhxAR6UCImKZApc72lbKd0JAFllcmug5QrZCWf iPDcpNYoqR7ujeRzb0ncOMQaTTMyQVTvK0XrKZT2 vIAwUQSxjWTbdKO7SA5uwjXdIG5dKQSqDuykhnUd xAZeiwYrNYShLDtia5jlPH0gTFFfnIwzfX1wkIZ3 ZUVvl3qyvPPhvKXpt7gtq9LidkRtPKzaNRHvDDky PFEhQRWjHF9iZZWtpIHwtzNgt5P0ShsatNAwlasv CusvrlX4DUymdzxlGNSqBMpsS5cvHuTpQUAjcHqd Ekhwm5BiUITnEVCtWiacaWEmgY4= Clinical Information (test code = RLQ abdominal pain [R10.31] 5939970957) Gross Description (test code = m2kedIFeLFMngHVSPHKpEORiSX1uzNolyCl6 cGdw 7757700923) [file] DQp9 Disclaimer (test code = 9272019465) j6rjiGEtRWZfh2okBKNovXKfKuRgEmD cZnRuYmpc hUDkJEpmdrKpKSjwp2CdA4RuZqExMOouwuMhXFNo LrsxushoGAZjHLV0qvSeSNXoIWcyIKJrFSujAn6r pVEroBshByKiFGIrn7odcsTCTEksDiSmL981TFEh BUqfy4lfy0OiFMCllQLkn6T7UDBTrujoqEa9bQhi Q76xw5B1YdirT7itLJBrJNSuP4CxHJ7jOKFlRiw9 UZE9QDO1CBYjZVYwB9BlJM2aTZKxyALpYNq8v6jq xXhuRUOwTXJ2o6dtVCjphvZfKE8wha1vqIt4b7iq vlLuQASxKKEzmTBTHBAyJ0DccSwqPm8zePi6oMcw LysxKXU3Iiu2BV3ahp55spj6aGjvMEKnzxzlCgU5 XDwkGFNnyybyGKb5HJqoUESwiSB0VFXplFEzH7Yu EOHyGY2vbao6WTR3NJbuKXQuEwM3GGLfqFSrJCSa dYmrHAauq134JUD8DyVtYO3cD6Fcn7T3rT7pzBKa MSUkbILxQkHdHQNtyx7rnRAuCKbri4HyUQY6yvU8 iHWxqBDsPKEgTR80Vovlj1KaHbsna5UnO16grWG4 EWhbd4mhBC1yWfK8hyEmEBirf2ghhQ0oRlA7EFpc BO5qUA9tTVFzhY1jigbcQPOvKkQxopevYWVvjRmx erNhFb4idJsgUYA2MOfxC0jljB2yNsC0QDaoS2si sJ6nSNd5VGcvpSN8FGLwfU6tJR1oyxsux1bsKJoc SFjuXVVcvgA8cqL4LSKatTFrP7JamV3rBTAhAW3l mnsmq3peKMZ2SKruXBXyDNH5QiPwOSOmg5Pjcsp9 PuQbh7WpeZOrRTapW05kl892SEUkngZvO0facDXv qakcfJVgwkjuDBzvpjS9UCNntaSdz3IjPIGjLST3 SPuhPGpkrSHlDUYamCcai9tjM6WxuOWxPBWqDHsk XGYxXGZzMjBcbGFuZzEwMzNcaGljaFxmMVxkYmNo [file] E1kvOtTzeG9oeMgmPLglGxRkMeCeQZivJIT6tY== Embedded Images (test code = 4575322697) [facility] METABOLIC PANEL (NA, K, CL, CO2, GLUCOSE, BUN, CREATININE, CA)2022-07-28 11:19:55 Test Item Value Reference Range Interpretation Comments NA (test code = 140 mmol/L 135-145 8538115205) K (test code = 3.8 mmol/L 3.5-5.0 5851680707) CL (test code = 106 mmol/L 98-108 9900830465) CO2 TOTAL (test code = 28 mmol/L 23-31 3854606304) AGAP (test code = 2-16 3080066187) BUN (test code = 6 mg/dL 7-23 L 2105844022) GLUCOSE (test code = 92 mg/dL 70-110 8468331833) CREATININE (test code = 0.81 mg/dL 0.60-1.25 8615870541) CALCIUM (test code = 8.5 mg/dL 8.6-10.6 L 9496789786) eGFR (test code = mL/min/1.73m2 7374786165) ALETHA (test code = ALETHA) Association of Glomerular Filtration Rate (GFR) and Staging of Kidney Disease* + --+ --+ ------+| GFR (mL/min/1.73 m2) ?| With Kidney Damage ?| ?Without Kidney Damage+ --------+ --------+ +| ?>90 ?| ?Stage one ?| ? Normal ?+ ---+ ---+ -------+| ?60-89 ?| ?Stage two ?| ? Decreased GFR ? + --+ --+ ------+| ?30-59 ?| ?Stage three ?| ? Stage three ? + --+ --+ ------+| ?15-29 ?| ?Stage four ? | ? Stage four ?+ ---+ ---+ -------+| ?<15 (or dialysis) ? ?| ?Stage five ? | ? Stage five ?+ ---+ ---+ -------+ *Each stage assumes the associated GFR level has been in effect for at least three months. ?Stages 1 to 5, with or without kidney disease, indicate chronic kidney disease. Notes: Determination of stages one and two (with eGFR >59mL/min/1.73 m2) requires estimation of kidney damage for at least three months as defined by structural or functional abnormalities of the kidney, manifested by either:Pathological abnormalities or Markers of kidney damage (including abnormalities in the composition of the blood or urine or abnormalities in imaging tests). Lab Interpretation Abnormal (test code = 39865-9) [facility] METABOLIC PANEL (NA, K, CL, CO2, GLUCOSE, BUN, CREATININE, CA)2022-07-28 11:19:55 Test Item Value Reference Range Interpretation Comments NA (test code = 140 mmol/L 135-145 0508387945) K (test code = 3.8 mmol/L 3.5-5.0 0005207861) CL (test code = 106 mmol/L 98-108 1403425377) CO2 TOTAL (test code = 28 mmol/L 23-31 4168399509) AGAP (test code = 2-16 5258339406) BUN (test code = 6 mg/dL 7-23 L 2927990197) GLUCOSE (test code = 92 mg/dL 70-110 7802322316) CREATININE (test code = 0.81 mg/dL 0.60-1.25 1578954159) CALCIUM (test code = 8.5 mg/dL 8.6-10.6 L 2590440856) eGFR (test code = mL/min/1.73m2 1181115784) ALETHA (test code = ALETHA) Association of Glomerular Filtration Rate (GFR) and Staging of Kidney Disease* + --+ --+ ------+| GFR (mL/min/1.73 m2) ?| With Kidney Damage ?| ?Without Kidney Damage+ --------+ --------+ +| ?>90 ?| ?Stage one ?| ? Normal ?+ ---+ ---+ -------+| ?60-89 ?| ?Stage two ?| ? Decreased GFR ? + --+ --+ ------+| ?30-59 ?| ?Stage three ?| ? Stage three ? + --+ --+ ------+| ?15-29 ?| ?Stage four ? | ? Stage four ?+ ---+ ---+ -------+| ?<15 (or dialysis) ? ?| ?Stage five ? | ? Stage five ?+ ---+ ---+ -------+ *Each stage assumes the associated GFR level has been in effect for at least three months. ?Stages 1 to 5, with or without kidney disease, indicate chronic kidney disease. Notes: Determination of stages one and two (with eGFR >59mL/min/1.73 m2) requires estimation of kidney damage for at least three months as defined by structural or functional abnormalities of the kidney, manifested by either:Pathological abnormalities or Markers of kidney damage (including abnormalities in the composition of the blood or urine or abnormalities in imaging tests). Lab Interpretation Abnormal (test code = 85967-4) [facility] WITH [id number] 09:17:20 Test Item Value Reference Range Interpretation Comments WBC (test code = See_Comment [Automated 1519-2) message] The sy stem which generated this result transmitted reference range : 4.20 - 10.70 10*3/?L. The reference range was not used to interpret this result as normal/abnormal . RBC (test code = See_Comment [Automated 300-8) message] The sy stem which generated this result transmitted reference range : 4.26 - 5.52 10*6/?L. The reference range was not used to interpret this result as normal/abnormal . HGB (test code = 13.1 g/dL 12.2-16.4 718-7) HCT (test code = 39.4 % 38.4-49.3 4544-3) MCV (test code = 83.1 fL 81.7-95.6 787-2) MCH (test code = 27.6 pg 26.1-32.7 785-6) MCHC (test code = 33.2 g/dL 31.2-35.0 786-4) RDW-SD (test code = 37.1 fL 38.5-51.6 L 00196-1) RDW-CV (test code = 12.1 % 12.1-15.4 788-0) PLT (test code = See_Comment [Automated 926-3) message] The sy stem which generated this result transmitted reference range : 150 - 328 10*3/ ?L. The reference r zulma was not used to interpret this result as normal/abnormal . MPV (test code = 10.3 fL 9.8-13.0 34750-3) NRBC/100 WBC (test See_Comment [Automat ed code = 7922868273) message] The system which generated this result transmitted reference range : 0.0 - 10.0 /100 WBCs. The refer ence range was not u sed to interpret th is result as normal/abnormal . NRBC x10^3 (test code See_Comment [Auto mated = 3294988991) message] The s ystem which generated this result transmitted reference range : 10*3/?L. The reference range was not used to interpret this result as normal/abnormal . GRAN MAT (NEUT) % 77.9 % (test code = 770-8) IMM GRAN % (test code 0.30 % = 9893411564) LYMPH % (test code = 10.2 % 736-9) MONO % (test code = 10.8 % 5905-5) EOS % (test code = 0.6 % 713-8) BASO % (test code = 0.2 % 706-2) GRAN MAT x10^3(ANC) 7.46 10*3/uL 1.99-6.95 H (test code = 9944525773) IMM GRAN x10^3 (test 0.03 10*3/uL 0.00-0.06 code = 4984317677) LYMPH x10^3 (test code 0.98 10*3/uL 1.09-3.23 L = 731-0) MONO x10^3 (test code 1.04 10*3/uL 0.36-1.02 H = 742-7) EOS x10^3 (test code = 0.06 10*3/uL 0.06-0.53 711-2) BASO x10^3 (test code 0.01-0.09 = 704-7) Lab Interpretation Abnormal (test code = 42950-5) [facility] WITH [id number] 09:17:20 Test Item Value Reference Range Interpretation Comments WBC (test code = See_Comment [Automated 6690-2) message] The sy stem which generated this result transmitted reference range : 4.20 - 10.70 10*3/?L. The reference range was not used to interpret this result as normal/abnormal . RBC (test code = See_Comment [Automated 789-8) message] The sy stem which generated this result transmitted reference range : 4.26 - 5.52 10*6/?L. The reference range was not used to interpret this result as normal/abnormal . HGB (test code = 13.1 g/dL 12.2-16.4 718-7) HCT (test code = 39.4 % 38.4-49.3 4544-3) MCV (test code = 83.1 fL 81.7-95.6 787-2) MCH (test code = 27.6 pg 26.1-32.7 785-6) MCHC (test code = 33.2 g/dL 31.2-35.0 786-4) RDW-SD (test code = 37.1 fL 38.5-51.6 L 50919-5) RDW-CV (test code = 12.1 % 12.1-15.4 788-0) PLT (test code = See_Comment [Automated 777-3) message] The sy stem which generated this result transmitted reference range : 150 - 328 10*3/ ?L. The reference r zulma was not used to interpret this result as normal/abnormal . MPV (test code = 10.3 fL 9.8-13.0 58558-1) NRBC/100 WBC (test See_Comment [Automat ed code = [id number]) message] The system which generated this result transmitted reference range : 0.0 - 10.0 /100 WBCs. The refer ence range was not u sed to interpret th is result as normal/abnormal . NRBC x10^3 (test code See_Comment [Auto mated = [id number]) message] The s ystem which generated this result transmitted reference range : 10*3/?L. The reference range was not used to interpret this result as normal/abnormal . GRAN MAT (NEUT) % 77.9 % (test code = 770-8) IMM GRAN % (test code 0.30 % = [id number]) LYMPH % (test code = 10.2 % 736-9) MONO % (test code = 10.8 % 5905-5) EOS % (test code = 0.6 % 713-8) BASO % (test code = 0.2 % 706-2) GRAN MAT x10^3(ANC) 7.46 10*3/uL 1.99-6.95 H (test code = [id number]) IMM GRAN x10^3 (test 0.03 10*3/uL 0.00-0.06 code = [id number]) LYMPH x10^3 (test code 0.98 10*3/uL 1.09-3.23 L = 731-0) MONO x10^3 (test code 1.04 10*3/uL 0.36-1.02 H = 742-7) EOS x10^3 (test code = 0.06 10*3/uL 0.06-0.53 711-2) BASO x10^3 (test code 0.01-0.09 = 704-7) Lab Interpretation Abnormal (test code = 54814-8) [facility]"
[2023-05-31] MEDS ORDERED: DOXYCYCLINE 100 MG CAP PO ONE (15:53)
[2023-05-31] MEDS ORDERED: LIDOCAINE 1% MPF 5 ML VIAL ONE (15:53)
--- NOTE | 2023-05-31 15:54 | RAD REPORT ---
EXAM DESCRIPTION: RAD - Foot Left 3 View - 05/31/2023 3:41 pm CLINICAL HISTORY: PAIN COMPARISON: No comparisons FINDINGS/IMPRESSION: No acute fracture. No malalignment. No significant focal degenerative changes.
[2023-05-31] MEDS ORDERED: TDAP (DIPHTH,PERTUSS(ACELL),TET VAC) 0.5 ML VIAL IMVAC ONE (15:56)
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
[2023-05-31] MEDS ORDERED: IBUPROFEN 400 MG TAB ONE (17:16)
[2023-05-31] MEDS ORDERED: HYDROCODONE/APAP 7.5/325 MG TAB ONE (17:17)
[2023-05-31] MEDS ORDERED: IBUPROFEN 200 MG TAB PO ONE (17:17)
== END 2023-05-31 17:07 | disposition home or self-care (01) ==
LOC: ER 14:31
PROC: 0HQNXZZ Repair Left Foot Skin, External Approach (ICD-10-PCS; principal; 2023-05-31)
DX: S91.012A Laceration without foreign body, left ankle, initial encounter (principal); S90.32XA Contusion of left foot, initial encounter; Z23 Encounter for immunization
CPT/HCPCS: 73630; 90471; 99284; 12001; J2001